=== PATIENT | female | born 1990 | race Caucasian/White ===

== ENCOUNTER 2022-06-20 13:00 | Outpatient (RCR) | payer OTHER, SELFPAY | END 2022-10-18 09:17 | disposition home or self-care (01) | PROVIDERS: PCP Family Medicine; Visit Provider Family Medicine | DX: N39.46 Mixed incontinence (principal); M99.05 Segmental and somatic dysfunction of pelvic region; N81.84 Pelvic muscle wasting; Z51.89 Encounter for other specified aftercare | CPT/HCPCS: 97110; 97140; 97162 ==